=== PATIENT | male | born 1935 | race Caucasian/White ===

== ENCOUNTER 2020-09-16 11:48 | Inpatient (IN) ==
[2020-09-16 14:47] LABS: Basophils # 0.1 K/mcL (0.0-0.2); Basophils % 0.5 %; Eosinophils # 0.1 K/mcL (0.0-0.6); Eosinophils % 1.4 %; Hematocrit 44.9 % (37.5-50.1); Immature Granulocytes % 0.3 % (0-4); Lymphocytes # 2.1 K/mcL (0.6-4.6); Lymphocytes % 22.5 %; Mean Corpuscular HGB Conc 31.2 g/dL (31.6-35.5); Mean Corpuscular Hemoglobin 27.1 pg (28.0-33.3); Mean Platelet Volume 10.5 fL (9.4-12.4); Monocytes % 10.5 %; Neutrophils # 5.9 K/mcL (1.6-8.9); Platelet Count 202 K/mcL (140-400); Red Blood Count 5.16 M/mcL (4.19-5.50); Red Cell Distribution Width 17.2 % (11.5-14.5); Segmented Neutrophils % 64.8 %; White Blood Count 9.1 K/mcL (4.3-11.1)
[2020-09-16 14:54] LABS: INR 2.3; Prothrombin Time 25.6 Seconds (9.4-12.1)
[2020-09-16 15:05] LABS: Calcium 9.3 mg/dL (8.6-10.3); Potassium 4.2 mEq/L (3.5-5.1)
[2020-09-16] MEDS ORDERED: *HR* OxyCODONE Immed Rel 5 MG TABLET PO PRN (15:32)
[2020-09-16] MEDS ORDERED: Naloxone 0.4 MG/ML INJ IVP PRN (15:33)
[2020-09-16] MEDS ORDERED: Ondansetron 4 MG/2 ML VIAL IVP PRN (15:33)
[2020-09-16] MEDS ORDERED: Dextrose Gel 15 GM/37.5 ML TUBE PO PRN ×2 (15:36)
[2020-09-16] MEDS ORDERED: *HR* Dextrose 50 % in Water (Vial) 50 ML VIAL IVP PRN (15:36)
[2020-09-16] MEDS ORDERED: D5% in Water 1,000 ML IVC PRN (15:36)
[2020-09-16] MEDS ORDERED: 0.9 % Sodium Chloride 1,000 ML IVC SCH (15:45)
[2020-09-16] MEDS: Insulin LISPRO 300 UNITS/3 ML VIAL SUBQ SCH (18:40)
[2020-09-16] MEDS ORDERED: Insulin LISPRO 300 UNITS/3 ML VIAL SUBQ SCH (21:00)
[2020-09-17 06:57] LABS: Basophils # 0.1 K/mcL (0.0-0.2); Basophils % 0.9 %; Eosinophils # 0.3 K/mcL (0.0-0.6); Eosinophils % 3.7 %; Hematocrit 42.4 % (37.5-50.1); Hemoglobin 13.2 g/dL (12.9-16.9); Immature Granulocytes % 0.4 % (0-4); Lymphocytes # 2.3 K/mcL (0.6-4.6); Lymphocytes % 27.7 %; Mean Corpuscular HGB Conc 31.1 g/dL (31.6-35.5); Mean Corpuscular Hemoglobin 27.2 pg (28.0-33.3); Mean Corpuscular Volume 87.4 fL (83.0-100.0); Mean Platelet Volume 11.3 fL (9.4-12.4); Monocytes # 0.9 K/mcL (0.0-1.3); Monocytes % 11.5 %; Neutrophils # 4.6 K/mcL (1.6-8.9); Platelet Count 198 K/mcL (140-400); Red Blood Count 4.85 M/mcL (4.19-5.50); Red Cell Distribution Width 17.2 % (11.5-14.5); Segmented Neutrophils % 55.8 %; White Blood Count 8.2 K/mcL (4.3-11.1)
[2020-09-17 07:09] LABS: INR 2.2; Prothrombin Time 24.5 Seconds (9.4-12.1)
[2020-09-17 07:17] LABS: Calcium 9.3 mg/dL (8.6-10.3); Potassium 3.9 mEq/L (3.5-5.1)
[2020-09-17] MEDS ORDERED: allopurinoL 100 MG TABLET PO SCH (09:00)
[2020-09-17] MEDS: Insulin LISPRO 300 UNITS/3 ML VIAL SUBQ SCH ×4 (09:06→21:51)
[2020-09-17] MEDS ORDERED: *HR* HYDROmorphone (PF) 1 MG/ML SYRINGE IVP PRN (10:44)
[2020-09-17] MEDS ORDERED: Nitroglycerin 0.4 MG TAB.SUBL SL PRN (10:44)
[2020-09-17] MEDS ORDERED: Naloxone 0.4 MG/ML INJ IVP PRN (10:44)
[2020-09-17] MEDS ORDERED: Albuterol 2.5 MG/3 ML NEBULIZER IH PRN (10:44)
[2020-09-17] MEDS ORDERED: *HR* FentaNYL (PF) 100 MCG/2 ML VIAL IVP PRN (10:44)
[2020-09-17] MEDS ORDERED: Ondansetron 4 MG/2 ML VIAL IVP PRN ×2 (10:44→13:05)
[2020-09-17] MEDS ORDERED: EPHEDrine 50 MG/ML VIAL ONE (11:17)
[2020-09-17] MEDS ORDERED: Lidocaine -MPF 2% 2 ML VIAL ONE (11:37)
[2020-09-17] MEDS ORDERED: *HR* Propofol 200 MG/20 ML VIAL IVP ONE (11:37)
[2020-09-17] MEDS ORDERED: *HR* FentaNYL (PF) 100 MCG/2 ML VIAL ONE (11:37)
[2020-09-17] MEDS ORDERED: D5% in Water 1,000 ML IVC PRN (13:05)
[2020-09-17] MEDS ORDERED: *HR* Dextrose 50 % in Water (Vial) 50 ML VIAL IVP PRN (13:05)
[2020-09-17] MEDS ORDERED: Dextrose Gel 15 GM/37.5 ML TUBE PO PRN ×2 (13:05)
[2020-09-17] MEDS ORDERED: 0.9 % Sodium Chloride 1,000 ML IVC SCH (13:05)
[2020-09-17] MEDS ORDERED: *HR* OxyCODONE Immed Rel 5 MG TABLET PO PRN (13:05)
[2020-09-17] MEDS ORDERED: FLUOCINONIDE TP PRN (14:58)
[2020-09-17] MEDS: CeFAZolin 2,000 MG/120 ML BAG IVPB SCH (18:33)
[2020-09-17] MEDS: Acetaminophen 325 MG TABLET PO PRN (22:03)
[2020-09-17] MEDS: lisinopriL 20 MG TABLET PO SCH (22:03)
[2020-09-18] MEDS: CeFAZolin 2,000 MG/120 ML BAG IVPB SCH (03:03)
[2020-09-18 07:02] LABS: Basophils # 0.1 K/mcL (0.0-0.2); Basophils % 0.6 %; Eosinophils # 0.1 K/mcL (0.0-0.6); Eosinophils % 1.4 %; Hematocrit 40.8 % (37.5-50.1); Hemoglobin 12.7 g/dL (12.9-16.9); Immature Granulocytes % 0.4 % (0-4); Lymphocytes # 1.9 K/mcL (0.6-4.6); Mean Corpuscular HGB Conc 31.1 g/dL (31.6-35.5); Mean Corpuscular Hemoglobin 27.1 pg (28.0-33.3); Mean Platelet Volume 11.2 fL (9.4-12.4); Monocytes # 1.1 K/mcL (0.0-1.3); Neutrophils # 6.7 K/mcL (1.6-8.9); Platelet Count 192 K/mcL (140-400); Red Blood Count 4.69 M/mcL (4.19-5.50); Red Cell Distribution Width 17.2 % (11.5-14.5); Segmented Neutrophils % 67.6 %; White Blood Count 9.9 K/mcL (4.3-11.1)
[2020-09-18 07:23] LABS: Calcium 8.8 mg/dL (8.6-10.3); Potassium 4.2 mEq/L (3.5-5.1)
[2020-09-18 07:37] LABS: INR 2.3; Prothrombin Time 26.2 Seconds (9.4-12.1)
[2020-09-18] MEDS: allopurinoL 100 MG TABLET PO SCH (09:28)
[2020-09-18] MEDS: lisinopriL 20 MG TABLET PO SCH ×2 (09:28→21:46)
[2020-09-18] MEDS: Insulin LISPRO 300 UNITS/3 ML VIAL SUBQ SCH ×4 (09:31→21:47)
[2020-09-18] MEDS ORDERED: Warfarin perPT PO PRN (18:00)
[2020-09-18] MEDS ORDERED: *HR* Warfarin 2.5 MG TABLET PO ONE (18:00)
[2020-09-19] MEDS: Insulin LISPRO 300 UNITS/3 ML VIAL SUBQ SCH ×4 (07:53→21:03)
[2020-09-19 07:57] LABS: Basophils # 0.1 K/mcL (0.0-0.2); Eosinophils # 0.3 K/mcL (0.0-0.6); Eosinophils % 3.5 %; Hematocrit 41.7 % (37.5-50.1); Hemoglobin 13.2 g/dL (12.9-16.9); Immature Granulocytes % 0.4 % (0-4); Lymphocytes # 1.9 K/mcL (0.6-4.6); Lymphocytes % 23.7 %; Mean Corpuscular HGB Conc 31.7 g/dL (31.6-35.5); Mean Corpuscular Hemoglobin 27.7 pg (28.0-33.3); Mean Corpuscular Volume 87.4 fL (83.0-100.0); Mean Platelet Volume 10.9 fL (9.4-12.4); Monocytes % 12.4 %; Neutrophils # 4.8 K/mcL (1.6-8.9); Platelet Count 199 K/mcL (140-400); Red Blood Count 4.77 M/mcL (4.19-5.50); White Blood Count 8.1 K/mcL (4.3-11.1)
[2020-09-19 08:03] LABS: INR 2.2; Prothrombin Time 24.6 Seconds (9.4-12.1)
[2020-09-19 08:05] LABS: Calcium 9.2 mg/dL (8.6-10.3); Potassium 4.1 mEq/L (3.5-5.1)
[2020-09-19] MEDS: allopurinoL 100 MG TABLET PO SCH (08:58)
[2020-09-19] MEDS: lisinopriL 20 MG TABLET PO SCH ×2 (08:58→21:08)
[2020-09-19] MEDS ORDERED: *HR* Warfarin 2.5 MG TABLET PO ONE (18:00)
[2020-09-19] MEDS: Acetaminophen 325 MG TABLET PO PRN (23:20)
[2020-09-20 07:30] LABS: INR 2.3; Prothrombin Time 25.6 Seconds (9.4-12.1)
[2020-09-20 07:31] VITALS: BP 148/76; PULSE 63; TEMP 98; O2SAT 96
[2020-09-20] MEDS: allopurinoL 100 MG TABLET PO SCH (11:00)
[2020-09-20] MEDS: Insulin LISPRO 300 UNITS/3 ML VIAL SUBQ SCH (11:01)
[2020-09-20] MEDS: lisinopriL 20 MG TABLET PO SCH (11:01)
[2020-09-20] MEDS ORDERED: *HR* Warfarin 0.5 MG TABLET PO ONE (18:00)
[2020-09-20] MEDS ORDERED: *HR* Warfarin 1 MG TABLET PO ONE (18:00)
== END 2020-09-20 16:18 | DRG 493 ==
LOC: EMEROOARM 11:48 → 3NENU 11:48 → SUATTDRO 17:28 → 3NENU 18:07
PROVIDERS: ADMIT Internal Medicine; ATTEND Family Medicine

== ENCOUNTER 2020-11-11 22:17 | Observation (INO) ==
[2020-11-11 22:52] LABS: Basophils # 0.1 K/mcL (0.0-0.2); Basophils % 0.5 %; Eosinophils # 0.4 K/mcL (0.0-0.6); Eosinophils % 3.2 %; Hematocrit 39.6 % (37.5-50.1); Hemoglobin 12.9 g/dL (12.9-16.9); Immature Granulocytes % 0.3 % (0-4); Lymphocytes # 3.2 K/mcL (0.6-4.6); Mean Corpuscular HGB Conc 32.6 g/dL (31.6-35.5); Mean Corpuscular Hemoglobin 27.8 pg (28.0-33.3); Mean Corpuscular Volume 85.3 fL (83.0-100.0); Mean Platelet Volume 10.3 fL (9.4-12.4); Monocytes % 8.3 %; Neutrophils # 6.9 K/mcL (1.6-8.9); Platelet Count 271 K/mcL (140-400); Red Blood Count 4.64 M/mcL (4.19-5.50); Red Cell Distribution Width 16.4 % (11.5-14.5); Segmented Neutrophils % 59.7 %; White Blood Count 11.5 K/mcL (4.3-11.1)
[2020-11-11 22:54] LABS: Bilirubin,Urine Negative (Negative); Blood,Urine Trace (Negative); Clarity,Urine Clear (Clear); Color,Urine Light-Yellow (Yellow); Glucose,Urine (UA) Normal (Normal); Ketones,Urine Negative (Negative); Leukocyte Esterase,Urine Large (Negative); Mucus,Urine Few per lpf (None-Few); Nitrite,Urine Positive (Negative); Protein,Urine 30 mg/dL (Neg-Trace); Specific Gravity,Urine 1.013 (1.010-1.025); Squamous Epithelial Cell,Urine Few per hpf (None-Few); Urobilinogen,Urine Normal (Normal)
[2020-11-11 23:14] LABS: Calcium 9.9 mg/dL (8.6-10.3); Potassium 5.3 mEq/L (3.5-5.1)
[2020-11-11] MEDS ORDERED: Piperacillin/Tazobactam 3.375 GM in 0.9 % Sodium Chloride Mini Bag 100 ML IVPB ONE (23:43)
[2020-11-11] MEDS ORDERED: 0.9 % Sodium Chloride 500 ML IVC ONE (23:56)
[2020-11-12] MEDS ORDERED: Acetaminophen 325 MG TABLET PO PRN (01:37)
[2020-11-12] MEDS ORDERED: Ondansetron 4 MG/2 ML VIAL IVP PRN (01:37)
[2020-11-12] MEDS ORDERED: Naloxone 0.4 MG/ML INJ IVP PRN (01:37)
[2020-11-12] MEDS ORDERED: 0.9 % Sodium Chloride 1,000 ML IVC SCH (01:45)
[2020-11-12 03:48] LABS: Hematocrit 35.8 % (37.5-50.1); Hemoglobin 11.5 g/dL (12.9-16.9); Mean Corpuscular HGB Conc 32.1 g/dL (31.6-35.5); Mean Corpuscular Hemoglobin 27.8 pg (28.0-33.3); Mean Corpuscular Volume 86.5 fL (83.0-100.0); Mean Platelet Volume 10.7 fL (9.4-12.4); Platelet Count 247 K/mcL (140-400); Red Blood Count 4.14 M/mcL (4.19-5.50); Red Cell Distribution Width 16.3 % (11.5-14.5); White Blood Count 9.6 K/mcL (4.3-11.1)
[2020-11-12 04:06] LABS: Calcium 9.4 mg/dL (8.6-10.3); Magnesium 2.2 mg/dL (1.6-2.6); Phosphorous 4.8 mg/dL (2.7-4.5)
[2020-11-12] MEDS ORDERED: Dextrose Gel 15 GM/37.5 ML TUBE PO PRN ×2 (04:38)
[2020-11-12] MEDS ORDERED: *HR* Dextrose 50 % in Water (Syg) 50 ML SYRINGE IVP PRN (04:38)
[2020-11-12] MEDS ORDERED: D5% in Water 1,000 ML IVC PRN (04:38)
[2020-11-12 05:40] LABS: INR 6.5; Prothrombin Time 71.4 Seconds (9.4-12.1)
[2020-11-12] MEDS: Insulin LISPRO 300 UNITS/3 ML VIAL SUBQ SCH ×3 (08:11→17:50)
[2020-11-12] MEDS: MetroNIDAZOLE 500 MG/100 ML 500 MG/100 ML BAG IVPB SCH ×2 (11:40→20:54)
[2020-11-12] MEDS: cefTRIAXone 1,000 MG in 0.9 % Sodium Chloride Mini Bag 100 ML IVPB SCH (11:40)
[2020-11-12] MEDS: Sodium Bicarbonate 150 MEQ in D5% in Water 1,000 ML IVC SCH ×2 (12:33→23:18)
[2020-11-12] MEDS: Fluconazole 400 MG/200 ML 400 MG/200 ML BAG IVPB SCH ×2 (17:00→18:53)
[2020-11-12] MEDS ORDERED: Warfarin perPT PO PRN (18:00)
[2020-11-13] MEDS: Insulin LISPRO 300 UNITS/3 ML VIAL SUBQ SCH ×4 (00:36→17:04)
[2020-11-13] MEDS: MetroNIDAZOLE 500 MG/100 ML 500 MG/100 ML BAG IVPB SCH ×3 (04:22→20:11)
[2020-11-13 05:14] LABS: Basophils # 0.1 K/mcL (0.0-0.2); Basophils % 0.6 %; Eosinophils # 0.4 K/mcL (0.0-0.6); Eosinophils % 5.1 %; Hematocrit 33.1 % (37.5-50.1); Hemoglobin 10.7 g/dL (12.9-16.9); Immature Granulocytes % 0.5 % (0-4); Lymphocytes # 2.3 K/mcL (0.6-4.6); Lymphocytes % 27.8 %; Mean Corpuscular HGB Conc 32.3 g/dL (31.6-35.5); Mean Corpuscular Hemoglobin 27.7 pg (28.0-33.3); Mean Corpuscular Volume 85.8 fL (83.0-100.0); Mean Platelet Volume 10.5 fL (9.4-12.4); Monocytes # 0.7 K/mcL (0.0-1.3); Monocytes % 8.9 %; Neutrophils # 4.7 K/mcL (1.6-8.9); Platelet Count 242 K/mcL (140-400); Red Blood Count 3.86 M/mcL (4.19-5.50); Red Cell Distribution Width 16.2 % (11.5-14.5); Segmented Neutrophils % 57.1 %; White Blood Count 8.2 K/mcL (4.3-11.1)
[2020-11-13 05:34] LABS: Prothrombin Time 87.1 Seconds (9.4-12.1)
[2020-11-13 05:35] LABS: INR 7.9
[2020-11-13 05:39] LABS: Calcium 8.7 mg/dL (8.6-10.3); Potassium 4.6 mEq/L (3.5-5.1)
[2020-11-13] MEDS: Sodium Bicarbonate 150 MEQ in D5% in Water 1,000 ML IVC SCH ×2 (09:45→23:07)
[2020-11-13 10:27] LABS: Sodium, Urine 86.9 mEq/L
[2020-11-13] MEDS: cefTRIAXone 1,000 MG in 0.9 % Sodium Chloride Mini Bag 100 ML IVPB SCH (12:29)
[2020-11-13] MEDS: Fluconazole 200 MG/100 ML 200 MG/100 ML BAG IVPB SCH (18:05)
[2020-11-14] MEDS: Insulin LISPRO 300 UNITS/3 ML VIAL SUBQ SCH ×3 (01:09→11:50)
[2020-11-14] MEDS: MetroNIDAZOLE 500 MG/100 ML 500 MG/100 ML BAG IVPB SCH ×2 (04:31→11:52)
[2020-11-14 05:11] LABS: INR 5.5; Prothrombin Time 60.2 Seconds (9.4-12.1)
[2020-11-14 05:15] LABS: Calcium 8.7 mg/dL (8.6-10.3); Potassium 4.3 mEq/L (3.5-5.1)
[2020-11-14 06:56] LABS: Basophils # 0.1 K/mcL (0.0-0.2); Basophils % 0.7 %; Eosinophils # 0.3 K/mcL (0.0-0.6); Eosinophils % 4.1 %; Hematocrit 35.9 % (37.5-50.1); Hemoglobin 11.3 g/dL (12.9-16.9); Immature Granulocytes % 0.1 % (0-4); Lymphocytes # 2.4 K/mcL (0.6-4.6); Lymphocytes % 29.6 %; Mean Corpuscular HGB Conc 31.5 g/dL (31.6-35.5); Mean Corpuscular Hemoglobin 27.3 pg (28.0-33.3); Mean Corpuscular Volume 86.7 fL (83.0-100.0); Mean Platelet Volume 10.7 fL (9.4-12.4); Monocytes # 0.8 K/mcL (0.0-1.3); Neutrophils # 4.4 K/mcL (1.6-8.9); Platelet Count 233 K/mcL (140-400); Red Blood Count 4.14 M/mcL (4.19-5.50); Red Cell Distribution Width 16.3 % (11.5-14.5); Segmented Neutrophils % 55.5 %
[2020-11-14] MEDS: cefTRIAXone 1,000 MG in 0.9 % Sodium Chloride Mini Bag 100 ML IVPB SCH (11:53)
[2020-11-14] MEDS ORDERED: FLU Vac QV 21-22 (6Month+)/PF 0.5 ML SYRINGE IM ONE (16:07)
[2020-11-14] MEDS: Fluconazole 200 MG/100 ML 200 MG/100 ML BAG IVPB SCH (17:46)
[2020-11-14 19:11] VITALS: BP 144/70; PULSE 59; TEMP 98; O2SAT 96
== END 2020-11-14 19:30 ==
LOC: EMEROOARM 22:17 → 2ANU 22:17 → SUATTDRO 11-12 00:38 → 2ANU 11-12 01:14
PROVIDERS: ADMIT Internal Medicine; ATTEND Internal Medicine

== ENCOUNTER 2021-04-16 20:11 | Inpatient (IN) ==
[2021-04-16 23:01] LABS: Basophils # 0.1 K/mcL (0.0-0.2); Basophils % 0.4 %; Eosinophils # 0.1 K/mcL (0.0-0.6); Eosinophils % 0.8 %; Hematocrit 44.1 % (37.5-50.1); Hemoglobin 13.5 g/dL (12.9-16.9); Immature Granulocytes % 0.5 % (0-4); Lymphocytes # 1.2 K/mcL (0.6-4.6); Lymphocytes % 10.3 %; Mean Corpuscular HGB Conc 30.6 g/dL (31.6-35.5); Mean Corpuscular Hemoglobin 27.8 pg (28.0-33.3); Mean Corpuscular Volume 90.7 fL (83.0-100.0); Mean Platelet Volume 9.8 fL (9.4-12.4); Monocytes # 0.8 K/mcL (0.0-1.3); Monocytes % 6.9 %; Neutrophils # 9.6 K/mcL (1.6-8.9); Platelet Count 237 K/mcL (140-400); Red Blood Count 4.86 M/mcL (4.19-5.50); Red Cell Distribution Width 18.6 % (11.5-14.5); Segmented Neutrophils % 81.1 %
[2021-04-16 23:03] LABS: Bilirubin,Urine Negative (Negative); Blood,Urine Trace (Negative); Clarity,Urine Turbid (Clear); Color,Urine Yellow (Yellow); Glucose,Urine (UA) Normal (Normal); Hyaline Casts,Urine Few per lpf (None Seen); Ketones,Urine Negative (Negative); Leukocyte Esterase,Urine Large (Negative); Mucus,Urine Few per lpf (None-Few); Nitrite,Urine Negative (Negative); Protein,Urine 50 mg/dL (Neg-Trace); RBC,Urine 15-30 per hpf (0-3); Specific Gravity,Urine 1.018 (1.010-1.025); Squamous Epithelial Cell,Urine Few per hpf (None-Few); WBC,Urine 50-100 per hpf (0-3)
[2021-04-16 23:05] LABS: White Blood Count 11.8 K/mcL (4.3-11.1)
[2021-04-16 23:22] LABS: Albumin 3.3 g/dL (3.5-5.7); Albumin/Globulin Ratio 0.8 (1.1-2.2); Calcium 9.1 mg/dL (8.6-10.3); Globulin 4.3 g/dL (2.4-3.5); Potassium 5.4 mEq/L (3.5-5.1); Total Protein 7.6 g/dL (6.4-8.9)
[2021-04-16 23:23] LABS: Troponin I 0.03 ng/mL (< 0.04)
[2021-04-16] MEDS ORDERED: cefTRIAXone 1,000 MG in 0.9 % Sodium Chloride 10 ML IVP ONE (23:58)
[2021-04-17 03:14] LABS: INR 2.6; Prothrombin Time 28.4 Seconds (9.4-12.1)
[2021-04-17] MEDS ORDERED: Naloxone 0.4 MG/ML INJ IVP PRN (05:40)
[2021-04-17] MEDS ORDERED: 0.9 % Sodium Chloride 1,000 ML IVC SCH (06:30)
[2021-04-17] MEDS ORDERED: *HR* Dextrose 50 % in Water (Vial) 50 ML VIAL IVP ONE (06:42)
[2021-04-17] MEDS ORDERED: Insulin Human Regular 10 UNIT in 0.9 % Sodium Chloride 10 ML IV ONE (06:45)
[2021-04-17] MEDS ORDERED: Piperacillin/Tazobactam 3.375 GM in 0.9 % Sodium Chloride Mini Bag 100 ML IVPB SCH ×2 (09:00→15:00)
[2021-04-17 09:50] LABS: Influenza A PCR Negative (Negative); Influenza B PCR Negative (Negative); Resp. Syncytial Virus PCR Negative (Negative)
[2021-04-17 09:52] LABS: SARS-CoV-2 by PCR (In House) Negative (Negative)
[2021-04-17 12:56] LABS: Calcium 9.1 mg/dL (8.6-10.3)
[2021-04-17] MEDS: Piperacillin/Tazobactam 3.375 GM in 0.9 % Sodium Chloride Mini Bag 100 ML IVPB SCH (17:12)
[2021-04-17] MEDS ORDERED: *HR* Warfarin 1 MG TABLET PO ONE (18:00)
[2021-04-17] MEDS ORDERED: Warfarin perPT PO PRN (18:00)
[2021-04-17] MEDS: lisinopriL 20 MG TABLET PO SCH (21:19)
[2021-04-18] MEDS: Piperacillin/Tazobactam 3.375 GM in 0.9 % Sodium Chloride Mini Bag 100 ML IVPB SCH ×3 (00:15→16:47)
[2021-04-18 01:38] LABS: Basophils # 0.1 K/mcL (0.0-0.2); Basophils % 0.7 %; Eosinophils # 0.2 K/mcL (0.0-0.6); Eosinophils % 1.9 %; Hematocrit 40.6 % (37.5-50.1); Hemoglobin 12.4 g/dL (12.9-16.9); Immature Granulocytes % 0.6 % (0-4); Lymphocytes # 1.7 K/mcL (0.6-4.6); Lymphocytes % 16.7 %; Mean Corpuscular HGB Conc 30.5 g/dL (31.6-35.5); Mean Corpuscular Hemoglobin 27.6 pg (28.0-33.3); Mean Corpuscular Volume 90.4 fL (83.0-100.0); Mean Platelet Volume 9.6 fL (9.4-12.4); Monocytes # 0.9 K/mcL (0.0-1.3); Monocytes % 8.6 %; Neutrophils # 7.4 K/mcL (1.6-8.9); Platelet Count 261 K/mcL (140-400); Red Blood Count 4.49 M/mcL (4.19-5.50); Red Cell Distribution Width 18.6 % (11.5-14.5); Segmented Neutrophils % 71.5 %; White Blood Count 10.3 K/mcL (4.3-11.1)
[2021-04-18 01:46] LABS: INR 2.6; Prothrombin Time 28.6 Seconds (9.4-12.1)
[2021-04-18 01:51] LABS: Calcium 8.9 mg/dL (8.6-10.3); Magnesium 2.2 mg/dL (1.6-2.6); Potassium 5.4 mEq/L (3.5-5.1)
[2021-04-18] MEDS ORDERED: *HR* Dextrose 50 % in Water (Vial) 50 ML VIAL IVP ONE (07:44)
[2021-04-18] MEDS ORDERED: Insulin Human Regular 10 UNIT in 0.9 % Sodium Chloride 10 ML IV ONE (07:44)
[2021-04-18] MEDS: allopurinoL 100 MG TABLET PO SCH (08:17)
[2021-04-18] MEDS: Multivit/Ca/Min/Fe/FA 1 TAB TABLET PO SCH (08:18)
[2021-04-18] MEDS: Acetaminophen 325 MG TABLET PO PRN (08:59)
[2021-04-18] MEDS: Furosemide 40 MG TABLET PO SCH (13:03)
[2021-04-18 16:34] LABS: Potassium 5.5 mEq/L (3.5-5.1)
[2021-04-18] MEDS ORDERED: SODIUM ZIRCONIUM CYCLOSILICATE 5 GM POWD.PACK PO ONE (16:53)
[2021-04-18] MEDS ORDERED: Warfarin 0.5 MG, Warfarin 1 MG PO ONE (18:00)
[2021-04-18] MEDS: Doxycycline 100 MG in 0.9 % Sodium Chloride Mini Bag 100 ML IVPB SCH (18:18)
[2021-04-18] MEDS: Melatonin 3 MG TABLET PO PRN (20:41)
[2021-04-19] MEDS: Piperacillin/Tazobactam 3.375 GM in 0.9 % Sodium Chloride Mini Bag 100 ML IVPB SCH ×3 (00:01→18:19)
[2021-04-19] MEDS: Acetaminophen 325 MG TABLET PO PRN (00:04)
[2021-04-19 04:31] LABS: Basophils # 0.1 K/mcL (0.0-0.2); Basophils % 0.8 %; Eosinophils # 0.3 K/mcL (0.0-0.6); Eosinophils % 3.3 %; Hematocrit 41.1 % (37.5-50.1); Hemoglobin 12.6 g/dL (12.9-16.9); Immature Granulocytes % 0.2 % (0-4); Lymphocytes # 1.7 K/mcL (0.6-4.6); Lymphocytes % 18.5 %; Mean Corpuscular HGB Conc 30.7 g/dL (31.6-35.5); Mean Corpuscular Hemoglobin 28.3 pg (28.0-33.3); Mean Corpuscular Volume 92.2 fL (83.0-100.0); Mean Platelet Volume 9.8 fL (9.4-12.4); Monocytes % 10.6 %; Neutrophils # 6.1 K/mcL (1.6-8.9); Platelet Count 264 K/mcL (140-400); Red Blood Count 4.46 M/mcL (4.19-5.50); Red Cell Distribution Width 18.2 % (11.5-14.5); Segmented Neutrophils % 66.6 %; White Blood Count 9.2 K/mcL (4.3-11.1)
[2021-04-19 04:44] LABS: Prothrombin Time 33.2 Seconds (9.4-12.1)
[2021-04-19 04:53] LABS: Calcium 8.9 mg/dL (8.6-10.3); Potassium 5.7 mEq/L (3.5-5.1)
[2021-04-19] MEDS: Doxycycline 100 MG in 0.9 % Sodium Chloride Mini Bag 100 ML IVPB SCH ×2 (06:40→18:18)
[2021-04-19] MEDS: SODIUM ZIRCONIUM CYCLOSILICATE 5 GM POWD.PACK PO SCH (08:45)
[2021-04-19] MEDS: Furosemide 40 MG TABLET PO SCH (08:47)
[2021-04-19] MEDS: allopurinoL 100 MG TABLET PO SCH (08:48)
[2021-04-19] MEDS: Multivit/Ca/Min/Fe/FA 1 TAB TABLET PO SCH (08:48)
[2021-04-20] MEDS: Piperacillin/Tazobactam 3.375 GM in 0.9 % Sodium Chloride Mini Bag 100 ML IVPB SCH ×3 (00:44→17:59)
[2021-04-20] MEDS: Melatonin 3 MG TABLET PO PRN (00:47)
[2021-04-20 02:58] LABS: Basophils # 0.1 K/mcL (0.0-0.2); Basophils % 0.8 %; Eosinophils # 0.2 K/mcL (0.0-0.6); Eosinophils % 2.7 %; Hematocrit 41.3 % (37.5-50.1); Hemoglobin 12.6 g/dL (12.9-16.9); Immature Granulocytes % 0.3 % (0-4); Lymphocytes # 1.6 K/mcL (0.6-4.6); Lymphocytes % 18.7 %; Mean Corpuscular HGB Conc 30.5 g/dL (31.6-35.5); Mean Corpuscular Hemoglobin 27.7 pg (28.0-33.3); Mean Corpuscular Volume 90.8 fL (83.0-100.0); Mean Platelet Volume 9.6 fL (9.4-12.4); Monocytes # 0.9 K/mcL (0.0-1.3); Monocytes % 9.9 %; Neutrophils # 5.9 K/mcL (1.6-8.9); Platelet Count 266 K/mcL (140-400); Red Blood Count 4.55 M/mcL (4.19-5.50); Red Cell Distribution Width 17.9 % (11.5-14.5); Segmented Neutrophils % 67.6 %; White Blood Count 8.8 K/mcL (4.3-11.1)
[2021-04-20 03:07] LABS: INR 3.5; Prothrombin Time 38.4 Seconds (9.4-12.1)
[2021-04-20 03:17] LABS: Potassium 5.6 mEq/L (3.5-5.1)
[2021-04-20] MEDS: Doxycycline 100 MG in 0.9 % Sodium Chloride Mini Bag 100 ML IVPB SCH ×2 (06:28→18:01)
[2021-04-20] MEDS: Furosemide 40 MG TABLET PO SCH (07:36)
[2021-04-20] MEDS: Multivit/Ca/Min/Fe/FA 1 TAB TABLET PO SCH (07:36)
[2021-04-20] MEDS: allopurinoL 100 MG TABLET PO SCH (07:36)
[2021-04-20] MEDS: SODIUM ZIRCONIUM CYCLOSILICATE 5 GM POWD.PACK PO SCH (07:36)
[2021-04-21] MEDS: Piperacillin/Tazobactam 3.375 GM in 0.9 % Sodium Chloride Mini Bag 100 ML IVPB SCH ×2 (01:56→09:39)
[2021-04-21 03:59] LABS: Basophils # 0.1 K/mcL (0.0-0.2); Eosinophils # 0.2 K/mcL (0.0-0.6); Eosinophils % 1.8 %; Hematocrit 41.8 % (37.5-50.1); Hemoglobin 12.7 g/dL (12.9-16.9); Immature Granulocytes % 0.6 % (0-4); Lymphocytes # 1.7 K/mcL (0.6-4.6); Lymphocytes % 20.1 %; Mean Corpuscular HGB Conc 30.4 g/dL (31.6-35.5); Mean Corpuscular Hemoglobin 28.1 pg (28.0-33.3); Mean Corpuscular Volume 92.5 fL (83.0-100.0); Mean Platelet Volume 9.6 fL (9.4-12.4); Monocytes # 0.8 K/mcL (0.0-1.3); Monocytes % 9.2 %; Neutrophils # 5.7 K/mcL (1.6-8.9); Platelet Count 257 K/mcL (140-400); Red Blood Count 4.52 M/mcL (4.19-5.50); Segmented Neutrophils % 67.3 %; White Blood Count 8.4 K/mcL (4.3-11.1)
[2021-04-21 04:08] LABS: INR 3.7; Prothrombin Time 41.2 Seconds (9.4-12.1)
[2021-04-21 04:19] LABS: Calcium 8.9 mg/dL (8.6-10.3); Potassium 6.3 mEq/L (3.5-5.1)
[2021-04-21] MEDS: Doxycycline 100 MG in 0.9 % Sodium Chloride Mini Bag 100 ML IVPB SCH ×2 (06:28→19:57)
[2021-04-21] MEDS ORDERED: *HR* Dextrose 50 % in Water (Vial) 50 ML VIAL IVP ONE (09:00)
[2021-04-21] MEDS ORDERED: Insulin Human Regular 10 UNIT in 0.9 % Sodium Chloride 10 ML IV ONE (09:00)
[2021-04-21] MEDS: SODIUM ZIRCONIUM CYCLOSILICATE 5 GM POWD.PACK PO SCH (09:37)
[2021-04-21] MEDS: Multivit/Ca/Min/Fe/FA 1 TAB TABLET PO SCH (09:37)
[2021-04-21] MEDS: Furosemide 40 MG TABLET PO SCH (09:37)
[2021-04-21] MEDS: allopurinoL 100 MG TABLET PO SCH (09:38)
[2021-04-21 12:42] LABS: Calcium 9.1 mg/dL (8.6-10.3); Potassium 5.8 mEq/L (3.5-5.1)
[2021-04-21] MEDS ORDERED: 0.9 % Sodium Chloride 250 ML IVC PRN (13:57)
[2021-04-21] MEDS ORDERED: *HR* Heparin 10,000 UNIT/10 ML VIAL IV PRN (13:57)
[2021-04-21] MEDS ORDERED: SODIUM ZIRCONIUM CYCLOSILICATE 5 GM POWD.PACK PO ONE (14:00)
[2021-04-21] MEDS ORDERED: 0.9 % Sodium Chloride 1,000 ML PRIME SCH (14:00)
[2021-04-21 14:54] LABS: Uric Acid 5.8 mg/dL (2.3-7.6)
[2021-04-21 15:11] LABS: Bacteria,Urine Few per hpf (None-Few); Bilirubin,Urine Negative (Negative); Blood,Urine Negative (Negative); Clarity,Urine Clear (Clear); Color,Urine Yellow (Yellow); Glucose,Urine (UA) Normal (Normal); Ketones,Urine Negative (Negative); Leukocyte Esterase,Urine Small (Negative); Mucus,Urine Few per lpf (None-Few); Nitrite,Urine Negative (Negative); PH,Urine 6.5 pH Units (5.0-8.0); Protein,Urine 30 mg/dL (Neg-Trace); Specific Gravity,Urine 1.023 (1.010-1.025); Urobilinogen,Urine Normal (Normal); WBC,Urine 15-30 per hpf (0-3)
[2021-04-21] MEDS ORDERED: Heparin 1,000 UNITS/500 mL 500 ML ONE (15:22)
[2021-04-21] MEDS ORDERED: Lidocaine/EPI 1:100k 1% 50 ML VIAL ONE (15:22)
[2021-04-21 15:29] LABS: Hepatitis B Surface Antigen Nonreactive (Nonreactive)
[2021-04-21 15:31] LABS: Protein/Creatinine Ratio,Urine 0.4 mg/mg (0.00-0.20); Sodium, Urine 59.4 mEq/L
[2021-04-21] MEDS ORDERED: *HR* Heparin 5,000 UNIT/ML VIAL ONE (15:37)
[2021-04-21 15:49] LABS: Hepatitis B Surface Antibody < 3.10 mIU/mL
[2021-04-21] MEDS ORDERED: Piperacillin/Tazobactam 3.375 GM in 0.9 % Sodium Chloride Mini Bag 100 ML IVPB SCH (22:00)
[2021-04-22] MEDS: Doxycycline 100 MG in 0.9 % Sodium Chloride Mini Bag 100 ML IVPB SCH ×2 (05:45→18:04)
[2021-04-22 06:00] LABS: Basophils % 0.4 %; Eosinophils % 0.2 %; Hematocrit 38.6 % (37.5-50.1); Hemoglobin 11.8 g/dL (12.9-16.9); Immature Granulocytes % 0.5 % (0-4); Lymphocytes # 1.1 K/mcL (0.6-4.6); Lymphocytes % 13.7 %; Mean Corpuscular HGB Conc 30.6 g/dL (31.6-35.5); Mean Corpuscular Hemoglobin 28.5 pg (28.0-33.3); Mean Corpuscular Volume 93.2 fL (83.0-100.0); Mean Platelet Volume 9.1 fL (9.4-12.4); Monocytes # 0.6 K/mcL (0.0-1.3); Monocytes % 6.9 %; Neutrophils # 6.5 K/mcL (1.6-8.9); Platelet Count 208 K/mcL (140-400); Red Blood Count 4.14 M/mcL (4.19-5.50); Red Cell Distribution Width 17.8 % (11.5-14.5); Segmented Neutrophils % 78.3 %; White Blood Count 8.3 K/mcL (4.3-11.1)
[2021-04-22 06:22] LABS: Calcium 8.6 mg/dL (8.6-10.3); Potassium 5.5 mEq/L (3.5-5.1)
[2021-04-22 06:50] LABS: INR 5.2; Prothrombin Time 57.4 Seconds (9.4-12.1)
[2021-04-22] MEDS ORDERED: 0.9 % Sodium Chloride 250 ML IVC PRN (07:51)
[2021-04-22] MEDS ORDERED: *HR* Heparin 10,000 UNIT/10 ML VIAL IV PRN (07:58)
[2021-04-22] MEDS: allopurinoL 100 MG TABLET PO SCH ×2 (09:02→12:01)
[2021-04-22] MEDS: Multivit/Ca/Min/Fe/FA 1 TAB TABLET PO SCH ×2 (09:02→12:01)
[2021-04-22] MEDS ORDERED: Albumin 25% 25gram/100mL 25 GM/100 ML IV.SOLN ONE (12:27)
[2021-04-22] MEDS: Piperacillin/Tazobactam 3.375 GM in 0.9 % Sodium Chloride Mini Bag 100 ML IVPB SCH (13:56)
[2021-04-23] MEDS: Piperacillin/Tazobactam 3.375 GM in 0.9 % Sodium Chloride Mini Bag 100 ML IVPB SCH ×2 (01:00→12:53)
[2021-04-23] MEDS: Doxycycline 100 MG in 0.9 % Sodium Chloride Mini Bag 100 ML IVPB SCH ×2 (05:23→17:41)
[2021-04-23 06:49] LABS: Basophils # 0.1 K/mcL (0.0-0.2); Basophils % 0.7 %; Eosinophils # 0.1 K/mcL (0.0-0.6); Eosinophils % 1.5 %; Hemoglobin 10.3 g/dL (12.9-16.9); Immature Granulocytes % 0.5 % (0-4); Lymphocytes # 1.7 K/mcL (0.6-4.6); Lymphocytes % 18.8 %; Mean Corpuscular HGB Conc 30.3 g/dL (31.6-35.5); Mean Corpuscular Hemoglobin 27.8 pg (28.0-33.3); Mean Corpuscular Volume 91.6 fL (83.0-100.0); Mean Platelet Volume 9.3 fL (9.4-12.4); Monocytes % 10.7 %; Neutrophils # 6.2 K/mcL (1.6-8.9); Platelet Count 193 K/mcL (140-400); Red Blood Count 3.71 M/mcL (4.19-5.50); Red Cell Distribution Width 17.6 % (11.5-14.5); Segmented Neutrophils % 67.8 %; White Blood Count 9.1 K/mcL (4.3-11.1)
[2021-04-23 07:00] LABS: INR 7.2
[2021-04-23 07:01] LABS: Prothrombin Time 78.5 Seconds (9.4-12.1)
[2021-04-23 08:29] LABS: Calcium 8.3 mg/dL (8.6-10.3); Potassium 4.8 mEq/L (3.5-5.1)
[2021-04-23] MEDS: allopurinoL 100 MG TABLET PO SCH (09:30)
[2021-04-23] MEDS: Multivit/Ca/Min/Fe/FA 1 TAB TABLET PO SCH (09:30)
[2021-04-23] MEDS ORDERED: *HR* Phytonadione 5 MG TABLET PO ONE (15:22)
[2021-04-23 20:10] LABS: Hematocrit 33.9 % (37.5-50.1); Hemoglobin 10.2 g/dL (12.9-16.9)
[2021-04-24] MEDS: Piperacillin/Tazobactam 3.375 GM in 0.9 % Sodium Chloride Mini Bag 100 ML IVPB SCH ×2 (00:10→13:13)
[2021-04-24 05:01] LABS: Basophils # 0.1 K/mcL (0.0-0.2); Basophils % 0.7 %; Eosinophils # 0.1 K/mcL (0.0-0.6); Hematocrit 32.2 % (37.5-50.1); Hemoglobin 9.9 g/dL (12.9-16.9); Immature Granulocytes % 0.4 % (0-4); Lymphocytes % 19.5 %; Mean Corpuscular HGB Conc 30.7 g/dL (31.6-35.5); Mean Corpuscular Hemoglobin 27.9 pg (28.0-33.3); Mean Corpuscular Volume 90.7 fL (83.0-100.0); Mean Platelet Volume 9.7 fL (9.4-12.4); Monocytes # 0.8 K/mcL (0.0-1.3); Monocytes % 7.3 %; Neutrophils # 7.3 K/mcL (1.6-8.9); Platelet Count 207 K/mcL (140-400); Red Blood Count 3.55 M/mcL (4.19-5.50); Red Cell Distribution Width 17.2 % (11.5-14.5); Segmented Neutrophils % 71.1 %; White Blood Count 10.2 K/mcL (4.3-11.1)
[2021-04-24 05:10] LABS: INR 2.7; Prothrombin Time 29.6 Seconds (9.4-12.1)
[2021-04-24 05:19] LABS: Calcium 8.6 mg/dL (8.6-10.3); Potassium 4.9 mEq/L (3.5-5.1)
[2021-04-24] MEDS: Doxycycline 100 MG in 0.9 % Sodium Chloride Mini Bag 100 ML IVPB SCH (05:28)
[2021-04-24] MEDS: lisinopriL 20 MG TABLET PO SCH ×2 (09:25→19:43)
[2021-04-24] MEDS: Multivit/Ca/Min/Fe/FA 1 TAB TABLET PO SCH (09:25)
[2021-04-24] MEDS: allopurinoL 100 MG TABLET PO SCH (09:25)
[2021-04-24 13:58] LABS: Prothrombin Time 21.7 Seconds (9.4-12.1)
[2021-04-24] MEDS ORDERED: *HR* Warfarin 0.5 MG TABLET PO ONE (18:00)
[2021-04-25 02:39] LABS: Calcium 8.8 mg/dL (8.6-10.3); Magnesium 2.5 mg/dL (1.6-2.6)
[2021-04-25 02:41] LABS: Basophils # 0.1 K/mcL (0.0-0.2); Basophils % 0.6 %; Eosinophils # 0.2 K/mcL (0.0-0.6); Eosinophils % 1.6 %; Hematocrit 30.9 % (37.5-50.1); Hemoglobin 9.2 g/dL (12.9-16.9); Immature Granulocytes % 0.6 % (0-4); Lymphocytes # 1.6 K/mcL (0.6-4.6); Lymphocytes % 17.2 %; Mean Corpuscular HGB Conc 29.8 g/dL (31.6-35.5); Mean Corpuscular Hemoglobin 27.2 pg (28.0-33.3); Mean Corpuscular Volume 91.4 fL (83.0-100.0); Mean Platelet Volume 10.6 fL (9.4-12.4); Monocytes # 0.7 K/mcL (0.0-1.3); Monocytes % 7.8 %; Neutrophils # 6.7 K/mcL (1.6-8.9); Platelet Count 216 K/mcL (140-400); Red Blood Count 3.38 M/mcL (4.19-5.50); Red Cell Distribution Width 17.2 % (11.5-14.5); Segmented Neutrophils % 72.2 %; White Blood Count 9.4 K/mcL (4.3-11.1)
[2021-04-25 02:59] LABS: INR 1.7; Prothrombin Time 18.5 Seconds (9.4-12.1)
[2021-04-25] MEDS: allopurinoL 100 MG TABLET PO SCH (08:54)
[2021-04-25] MEDS: Multivit/Ca/Min/Fe/FA 1 TAB TABLET PO SCH (08:54)
[2021-04-25] MEDS ORDERED: lisinopriL 20 MG TABLET PO SCH (09:00)
[2021-04-25] MEDS ORDERED: *HR* Warfarin 0.5 MG TABLET PO ONE (18:00)
[2021-04-26 02:27] LABS: Basophils # 0.1 K/mcL (0.0-0.2); Basophils % 0.6 %; Eosinophils # 0.2 K/mcL (0.0-0.6); Eosinophils % 1.9 %; Hemoglobin 8.7 g/dL (12.9-16.9); Immature Granulocytes % 0.6 % (0-4); Lymphocytes # 1.5 K/mcL (0.6-4.6); Lymphocytes % 16.5 %; Mean Corpuscular Hemoglobin 27.4 pg (28.0-33.3); Mean Corpuscular Volume 91.2 fL (83.0-100.0); Mean Platelet Volume 10.1 fL (9.4-12.4); Monocytes # 0.7 K/mcL (0.0-1.3); Monocytes % 7.3 %; Neutrophils # 6.6 K/mcL (1.6-8.9); Platelet Count 219 K/mcL (140-400); Red Blood Count 3.18 M/mcL (4.19-5.50); Red Cell Distribution Width 17.2 % (11.5-14.5); Segmented Neutrophils % 73.1 %; White Blood Count 9.1 K/mcL (4.3-11.1)
[2021-04-26 02:39] LABS: Magnesium 2.5 mg/dL (1.6-2.6); Potassium 5.4 mEq/L (3.5-5.1)
[2021-04-26 03:06] LABS: INR 1.6; Prothrombin Time 18.1 Seconds (9.4-12.1)
[2021-04-26] MEDS: Multivit/Ca/Min/Fe/FA 1 TAB TABLET PO SCH (09:08)
[2021-04-26] MEDS: allopurinoL 100 MG TABLET PO SCH (09:08)
[2021-04-26 12:32] LABS: Adenovirus Not Detected (Not Detect); Bordetella Pertussis Not Detected (Not Detect); Chlamydophila pneumoniae Not Detected (Not Detect); Coronavirus 229E Not Detected (Not Detect); Coronavirus HKU1 Not Detected (Not Detect); Coronavirus NL63 Not Detected (Not Detect); Coronavirus OC43 Not Detected (Not Detect); Human Metapneumovirus Not Detected (Not Detect); Human Rhinovirus/Enterovirus Not Detected (Not Detect); Influenza A Subtype 2009 H1 Not Detected (Not Detect); Influenza B Not Detected (Not Detect); Mycoplasma pneumoniae Not Detected (Not Detect); Parainfluenza Virus 1 Not Detected (Not Detect); Parainfluenza Virus 2 Not Detected (Not Detect); Parainfluenza Virus 3 Not Detected (Not Detect); Parainfluenza Virus 4 Not Detected (Not Detect); Respiratory Syncytial Virus Not Detected (Not Detect); SARS-CoV-2 Not Detected (Not Detect)
[2021-04-26 17:03] LABS: Hematocrit 31.1 % (37.5-50.1); Hemoglobin 9.3 g/dL (12.9-16.9)
[2021-04-26] MEDS ORDERED: Warfarin 1 MG, Warfarin 0.5 MG PO ONE (18:00)
[2021-04-27] MEDS ORDERED: 0.9 % Sodium Chloride 250 ML IVC ONE (03:49)
[2021-04-27] MEDS ORDERED: 0.9 % Sodium Chloride 250 ML ONE (03:50)
[2021-04-27 03:54] LABS: Basophils % 0.2 %; Eosinophils # 0.1 K/mcL (0.0-0.6); Eosinophils % 0.6 %; Hematocrit 24.5 % (37.5-50.1); Immature Granulocytes % 0.6 % (0-4); Lymphocytes # 1.5 K/mcL (0.6-4.6); Lymphocytes % 17.5 %; Mean Corpuscular Hemoglobin 27.9 pg (28.0-33.3); Mean Corpuscular Volume 90.1 fL (83.0-100.0); Mean Platelet Volume 10.4 fL (9.4-12.4); Monocytes # 0.5 K/mcL (0.0-1.3); Monocytes % 6.4 %; Neutrophils # 6.2 K/mcL (1.6-8.9); Platelet Count 216 K/mcL (140-400); Red Blood Count 2.72 M/mcL (4.19-5.50); Red Cell Distribution Width 17.4 % (11.5-14.5); Segmented Neutrophils % 74.7 %; White Blood Count 8.3 K/mcL (4.3-11.1)
[2021-04-27 03:56] LABS: Hemoglobin 7.6 g/dL (12.9-16.9)
[2021-04-27 04:07] LABS: INR 1.9; Prothrombin Time 20.8 Seconds (9.4-12.1)
[2021-04-27 04:16] LABS: Calcium 8.7 mg/dL (8.6-10.3); Magnesium 2.3 mg/dL (1.6-2.6); Potassium 5.6 mEq/L (3.5-5.1)
[2021-04-27] MEDS ORDERED: 0.9 % Sodium Chloride 250 ML IVC SCH (04:30)
[2021-04-27 04:47] LABS: ABG Base Excess -4 mEq/L (-2 to 3); ABG HCO3 22 mEq/L (21-27); ABG Oxygen Saturation 85 % (95-98); ABG PCO2 41 mmHg (35-45); ABG PH 7.34 pH Units (7.32-7.45); ABG PO2 53 mmHg (85-104); ABG TCO2 23 mEq/L (20-26)
[2021-04-27] MEDS ORDERED: Dextrose 4 GM Chewable Tablets PO PRN ×2 (05:26)
[2021-04-27] MEDS ORDERED: D5% in Water 1,000 ML IVC PRN (05:26)
[2021-04-27] MEDS ORDERED: *HR* Dextrose 50 % in Water (Syg) 50 ML SYRINGE IVP PRN (05:26)
[2021-04-27] MEDS ORDERED: Calcium Gluconate 1gm/50mL 1 GM/50 ML BAG IVPB ONE (05:59)
[2021-04-27] MEDS ORDERED: 0.9 % Sodium Chloride 250 ML IVC PRN (07:48)
[2021-04-27] MEDS ORDERED: 0.9 % Sodium Chloride 1,000 ML PRIME SCH ×2 (08:00→09:45)
[2021-04-27] MEDS: Norepinephrine 4 MG/254 ML IV.SOLN IVC SCH ×2 (08:22→21:00)
[2021-04-27] MEDS: Multivit/Ca/Min/Fe/FA 1 TAB TABLET PO SCH (09:04)
[2021-04-27] MEDS: allopurinoL 100 MG TABLET PO SCH (09:04)
[2021-04-27 09:34] LABS: ABG Base Excess -6 mEq/L (-2 to 3); ABG HCO3 23 mEq/L (21-27); ABG Oxygen Saturation 93 % (95-98); ABG PCO2 66 mmHg (35-45); ABG PH 7.15 pH Units (7.32-7.45); ABG PO2 88 mmHg (85-104); ABG TCO2 25 mEq/L (20-26)
[2021-04-27] MEDS ORDERED: *HR* Alteplase (Cathflo) 2 MG VIAL IVP PRN (09:42)
[2021-04-27] MEDS ORDERED: 0.9 % Sodium Chloride 1,000 ML PRIME ONE ×2 (09:42)
[2021-04-27] MEDS ORDERED: *HR* Heparin 5,000 UNIT/ML VIAL IVP PRN (09:42)
[2021-04-27] MEDS: PrismaSATE BGK 4/2.5 5,000 ML CRRT SCH ×7 (11:47→21:46)
[2021-04-27 16:05] LABS: Hematocrit 31.8 % (37.5-50.1)
[2021-04-27 16:08] LABS: Hemoglobin 9.9 g/dL (12.9-16.9)
[2021-04-27] MEDS: Pantoprazole 40 MG VIAL IVP SCH (17:57)
[2021-04-27 20:10] LABS: Hematocrit 33.7 % (37.5-50.1); Hemoglobin 10.6 g/dL (12.9-16.9)
[2021-04-28] MEDS: PrismaSATE BGK 4/2.5 5,000 ML CRRT SCH ×11 (01:00→22:35)
[2021-04-28 03:38] LABS: Basophils # 0.1 K/mcL (0.0-0.2); Basophils % 0.7 %; Eosinophils # 0.1 K/mcL (0.0-0.6); Eosinophils % 1.1 %; Hemoglobin 9.8 g/dL (12.9-16.9); Immature Granulocytes % 0.6 % (0-4); Lymphocytes # 1.3 K/mcL (0.6-4.6); Mean Corpuscular HGB Conc 31.6 g/dL (31.6-35.5); Mean Corpuscular Hemoglobin 28.4 pg (28.0-33.3); Mean Corpuscular Volume 89.9 fL (83.0-100.0); Mean Platelet Volume 10.1 fL (9.4-12.4); Monocytes # 0.8 K/mcL (0.0-1.3); Monocytes % 7.5 %; Neutrophils # 8.3 K/mcL (1.6-8.9); Platelet Count 251 K/mcL (140-400); Red Blood Count 3.45 M/mcL (4.19-5.50); Red Cell Distribution Width 17.2 % (11.5-14.5); Segmented Neutrophils % 78.1 %; White Blood Count 10.6 K/mcL (4.3-11.1)
[2021-04-28 03:46] LABS: INR 2.4
[2021-04-28 03:48] LABS: VBG Ionized Calcium 1.17 mmol/L (1.15-1.35)
[2021-04-28 04:01] LABS: Albumin 3.2 g/dL (3.5-5.7); Albumin/Globulin Ratio 0.9 (1.1-2.2); Bilirubin,Direct 0.4 mg/dL (0.0-0.2); Bilirubin,Indirect 0.4 mg/dL (0.0-1.0); Bilirubin,Total 0.8 mg/dL (0.3-1.0); Calcium 8.4 mg/dL (8.6-10.3); Globulin 3.6 g/dL (2.4-3.5); Magnesium 2.4 mg/dL (1.6-2.6); Phosphorous 3.7 mg/dL (2.7-4.5); Potassium 4.9 mEq/L (3.5-5.1); Total Protein 6.8 g/dL (6.4-8.9)
[2021-04-28] MEDS: Pantoprazole 40 MG VIAL IVP SCH ×2 (05:19→17:08)
[2021-04-28] MEDS: Norepinephrine 4 MG/254 ML IV.SOLN IVC SCH ×2 (06:30→20:34)
[2021-04-28] MEDS: Multivit/Ca/Min/Fe/FA 1 TAB TABLET PO SCH (11:23)
[2021-04-28] MEDS: allopurinoL 100 MG TABLET PO SCH (11:23)
[2021-04-28 11:29] LABS: VBG Ionized Calcium 1.18 mmol/L (1.15-1.35)
[2021-04-28 11:52] LABS: Calcium 8.3 mg/dL (8.6-10.3); Magnesium 2.4 mg/dL (1.6-2.6); Potassium 4.8 mEq/L (3.5-5.1)
[2021-04-28] MEDS: Acetaminophen 325 MG TABLET PO PRN ×2 (12:29→22:15)
[2021-04-28] MEDS ORDERED: *HR* Atropine Sulfate 1 MG/10 ML SYRINGE IVP ONE (21:18)
[2021-04-28] MEDS ORDERED: Perflutren Lipid Microsphere 1.3 ML in 0.9 % Sodium Chloride 8.7 ML IVP PRN (21:54)
[2021-04-29] MEDS: PrismaSATE BGK 4/2.5 5,000 ML CRRT SCH ×6 (00:05→10:08)
[2021-04-29] MEDS: Norepinephrine 4 MG/254 ML IV.SOLN IVC SCH ×2 (00:23→09:10)
[2021-04-29 03:51] LABS: VBG Ionized Calcium 1.15 mmol/L (1.15-1.35)
[2021-04-29 04:03] LABS: Basophils % 0.5 %; Eosinophils # 0.1 K/mcL (0.0-0.6); Eosinophils % 1.3 %; Hemoglobin 9.3 g/dL (12.9-16.9); Immature Granulocytes % 0.5 % (0-4); Lymphocytes # 1.1 K/mcL (0.6-4.6); Lymphocytes % 12.6 %; Mean Corpuscular Hemoglobin 27.8 pg (28.0-33.3); Mean Corpuscular Volume 92.8 fL (83.0-100.0); Mean Platelet Volume 10.5 fL (9.4-12.4); Monocytes # 0.7 K/mcL (0.0-1.3); Monocytes % 8.8 %; Neutrophils # 6.4 K/mcL (1.6-8.9); Platelet Count 211 K/mcL (140-400); Red Blood Count 3.34 M/mcL (4.19-5.50); Red Cell Distribution Width 17.2 % (11.5-14.5); Segmented Neutrophils % 76.3 %; White Blood Count 8.4 K/mcL (4.3-11.1)
[2021-04-29 04:15] LABS: INR 1.7; Prothrombin Time 18.8 Seconds (9.4-12.1)
[2021-04-29 04:55] LABS: Albumin 3.2 g/dL (3.5-5.7); Albumin/Globulin Ratio 0.9 (1.1-2.2); Bilirubin,Direct 0.4 mg/dL (0.0-0.2); Bilirubin,Indirect 0.4 mg/dL (0.0-1.0); Bilirubin,Total 0.8 mg/dL (0.3-1.0); Calcium 8.2 mg/dL (8.6-10.3); Globulin 3.5 g/dL (2.4-3.5); Magnesium 2.4 mg/dL (1.6-2.6); Phosphorous 2.8 mg/dL (2.7-4.5); Potassium 4.7 mEq/L (3.5-5.1); Total Protein 6.7 g/dL (6.4-8.9)
[2021-04-29] MEDS: Pantoprazole 40 MG VIAL IVP SCH (05:33)
[2021-04-29] MEDS: allopurinoL 100 MG TABLET PO SCH (07:26)
[2021-04-29] MEDS: Multivit/Ca/Min/Fe/FA 1 TAB TABLET PO SCH (07:26)
[2021-04-29] MEDS ORDERED: *HR* LORazepam Oral Conc 2 MG/ML PO PRN (15:35)
[2021-04-29] MEDS ORDERED: Haloperidol Lactate 5 MG/ML VIAL IVP PRN (15:35)
[2021-04-29 18:53] VITALS: PULSE 59
[2021-04-29] MEDS: Glycopyrrolate 0.2 MG/ML VIAL IVP PRN (21:17)
[2021-04-30] MEDS: Glycopyrrolate 0.2 MG/ML VIAL IVP PRN ×2 (01:18→05:39)
[2021-04-30 07:33] VITALS: BP 95/48; TEMP 97.7; O2SAT 98
[2021-04-30] MEDS ORDERED: *HR* FentaNYL (PF) 100 MCG/2 ML VIAL IVP PRN (10:51)
[2021-04-30] MEDS: Haloperidol Lactate 5 MG/ML VIAL IVP PRN ×3 (12:11→17:59)
[2021-05-01] MEDS: Haloperidol Lactate 5 MG/ML VIAL IVP PRN ×4 (00:22→08:29)
[2021-05-01] MEDS ORDERED: Saliva Stimulant 44.3ml BOTTLE PO PRN (05:56)
[2021-05-01] MEDS: Glycopyrrolate 0.2 MG/ML VIAL IVP PRN (11:21)
== END 2021-05-01 11:54 | disposition hospice, inpatient (51) | DRG 698 ==
LOC: EMEROOARM 20:11 → 3NENU 20:11 → SUATTDRO 04-17 11:42 → ICNU 04-27 05:48 → 2NENU 04-29 17:22
PROVIDERS: ADMIT Internal Medicine; ATTEND Internal Medicine

== ENCOUNTER 2021-05-01 11:29 | Inpatient (IN) ==
[2021-05-01] MEDS ORDERED: Bisacodyl 10 MG RECTAL SUPPOSITORY RC PRN (11:34)
[2021-05-01] MEDS ORDERED: Saliva Stimulant 44.3ml BOTTLE PO PRN (11:38)
[2021-05-01] MEDS ORDERED: Scopolamine Patch 1.5 MG PATCH.TD72 TD SCH (11:45)
[2021-05-01] MEDS ORDERED: Atropine 1% Opth Drops 100 DROP/5 ML BOTTLE SL PRN (14:37)
[2021-05-01] MEDS: Haloperidol Oral Conc 10 MG/5 ML UDC PO SCH ×2 (15:41→17:37)
[2021-05-01] MEDS: *HR* FentaNYL (PF) 100 MCG/2 ML VIAL IVP PRN ×2 (15:50→20:03)
[2021-05-01] MEDS ORDERED: Acetaminophen IV 1,000 MG/100 ML BAG IVPB SCH (18:00)
== END 2021-05-01 20:19 | disposition expired | DRG 951 ==
LOC: 2NENU 13:50
PROVIDERS: ADMIT Internal Medicine Hospice and Palliative Medicine; ATTEND Internal Medicine Hospice and Palliative Medicine